=== PATIENT | female | born 1960 | race Caucasian/White ===

== ENCOUNTER → 2018-10-16 10:18 | Outpatient (CLI) | payer MEDICARE, MEDICAID | END | disposition home or self-care (01) | LOC: D.MRI 10:18 | PROVIDERS: ATTEND Orthopaedic Surgery | DX: M54.12 Radiculopathy, cervical region (principal) ==

== ENCOUNTER 2018-12-02 08:00 | Outpatient (CLI) | payer MEDICARE, MEDICAID ==
[2018-12-02] MEDS ORDERED: ZANAFLEX4 MG PO (12:57)
[2018-12-02] MEDS ORDERED: LIPITOR10 MG PO (12:58)
[2018-12-02] MEDS ORDERED: FENOFIBRATE160 MG PO (12:58)
[2018-12-02] MEDS ORDERED: NEURONTIN600 MG PO (12:58)
[2018-12-02] MEDS ORDERED: TOPROL XL25 MG PO (12:58)
[2018-12-02] MEDS ORDERED: CLONAZEPAM TAB 1MG PO (12:59)
[2018-12-02] MEDS ORDERED: HYDROCODON-ACE1 EAC7 PO (12:59)
[2018-12-02] MEDS ORDERED: IBUPROFEN800 MG PO (13:00)
[2018-12-02 14:23] LABS: HEMATOCRIT 41.6 % (36.0-48.0); HEMOGLOBIN 14.8 g/dL (12-16); MCH 35.2 pg (26.0-34.0); MCHC 35.6 g/dL (31.0-37.0); MEAN PLATELET VOLUME 10.1 fL (7.4-10.4); RBC 4.2 10x6/uL (4.00-5.40); RDW 12.2 % (11.5-14.5); WBC 8.5 10x3/uL (4.8-10.8)
[2018-12-23] MEDS ORDERED: BAYER CHEWABLE81 MG PO (16:18)
== END 2018-12-02 08:01 | disposition home or self-care (01) ==
LOC: D.OPS 08:00 → D.PAN 12-04 07:30 → EDSTATUS 12-04 07:30
PROVIDERS: Anesthesiology; ATTEND Neurological Surgery
DX: M54.12 Radiculopathy, cervical region (principal)

== ENCOUNTER 2018-12-24 07:51 | Day surgery (SDC) | payer MEDICARE ==
[2018-12-24] VITALS (16 sets, daily range): BP systolic 90–133; BP diastolic 55–93; Ht 177.8 cm; Wt 105.1 kg
[~2018-12-24] VITALS: Ht 177.8 cm; Wt 105.1 kg
[~2018-12-24 07:51] MED LIST: BAYER CHEWABLE81 MG PO; CLONAZEPAM TAB 1MG PO; FENOFIBRATE160 MG PO; HYDROCODON-ACE1 EAC7 PO; IBUPROFEN800 MG PO; LIPITOR10 MG PO; NEURONTIN600 MG PO; TOPROL XL25 MG PO; ZANAFLEX4 MG PO
[2018-12-24 13:05] LABS: HEMATOCRIT 39.6 % (36.0-48.0); HEMOGLOBIN 14.6 g/dL (12-16); MCH 35.5 pg (26.0-34.0); MCHC 36.9 g/dL (31.0-37.0); MCV 96.4 fL (80.0-100.0); MEAN PLATELET VOLUME 9.4 fL (7.4-10.4); RBC 4.11 10x6/uL (4.00-5.40); RDW 12.3 % (11.5-14.5); WBC 6.5 10x3/uL (4.8-10.8)
--- NOTE | 2018-12-24 14:08 | NUR ---
1227 PT ADMITTED TO THE ICU FROM VIA BED , PT IS AWAKE AND APPROPRIATE IN RESPONSESS... THERE IS A DRESSING ON THE RIGHT ANTERIOR NECK CDI NEURO CHECKS ARE EQUAL WITH A SLIGHT TONGUE SHIFT TO THE LEFT PT STATES THAT HER MOUTH IS VERY DRY 1245 ICE CHIPS GIVEN.. SWALLOWS WITHOUT DIFFICULTY... 1300 C/O PAIN AN 8 1315 FAMILY IN TO SEE PT MEDS GIVEN MSO4 D51/2 NS AT 50CC
--- NOTE | 2018-12-24 15:00 | NUR ---
PT RESTING AT THIS TIME, NO NEEDS NOTED, WILL CON'T TO MONITOR
--- NOTE | 2018-12-24 17:00 | NUR ---
PT C/O OF PAIN, ORDERED PAIN MED GIVEN
--- NOTE | 2018-12-24 19:00 | NUR ---
SHIFT ASSESSMENT COMPLETE. 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 SHE DENIES ANY PAIN AT THIS TIME. RR EVEN AND UNLABORED, CLEAR BREATH SOUNDS HEARD BILAT THROUGHOUT UPPER AND MIDDLE LOBES, DIMINISHED AT THE BASES. NC ON @ 1L/MIN. S1S2 AUDIBLE, HR NSR SHOWING ON MONITOR. R HAND PIV INFUSING D5 1/2 NS @ 50 ML/HR. SOFT C-COLLAR ON, REMOVED, R NECK INCISION CDI, WELL APPROXIMATED. ABD SOFT, BS HYPOACTIVE X4. RADIAL AND PEDAL PULSES PALP. VSS. CALL LIGHT IN REACH, PT IS IN GOOD SPIRITS. BED IN LOWEST POSITION, BED ALARM ON, TIGHT ALARMS SET ON ICU MONITORS. WILL CONT WITH POC.
--- NOTE | 2018-12-24 21:00 | NUR ---
ASSISTED PT TO BSC, 150 ML VOID, YELLOW URINE. GAIT STEADY. REPOSITIONED FOR COMFORT. VSS. CALL LIGHT IN REACH, NO FURTHER NEEDS AT THIS TIME. SOFT C-COLLAR ON AND FUNCTIONING.
--- NOTE | 2018-12-24 23:00 | NUR ---
REASSESSMENT COMPLETE. PT STATES THAT SHE IS IN 8/10 PAIN, INCISIONAL, NECK AND LUIS PAIN. PRN PAIN MEDS ADMIN PER ORDERS. PRN ZOFRAN ADMIN D/T NAUSEA. REPOSITIONED FOR COMFORT, CALL LIGHT IN REACH, NO FURTHER NEEDS AT THIS TIME. WILL CONT CLOSE MONITORING.
--- NOTE | 2018-12-24 23:02 | NUR ---
REVIEWED ALLERGIES WITH PATIENT D/T HYDROCODONE HAVING ACETAMINOPHEN IN IT. SHE STATED, "SOMETIMES IT GIVES ME GASTRIC REFLUX." I ASKED HER IF SHE USUALLY TAKES IT ON AN EMPTY STOMACH AND SHE STATED THAT SHE DID. EDUCATION PROVIDED AND SHE STATES THAT SHE WILL TAKE IT WITH FOOD NEXT TIME. SHE STATED THAT SHE WANTED TO TAKE THE HYDROCODNE NOW AND THAT SHE HAS TAKEN IT IN THE PAST. WILL INFORM AM NURSE TO DISCUSS WITH DR. CUENCA WHEN HE ROUNDS. PROVIDED PM SNACK. NO FURTHER FINDINGS AT THIS TIME. WILL CONT WITH POC.
--- NOTE | 2018-12-24 23:40 | NUR ---
PRN MORPHINE ADMIN D/T INCREASED PAIN OF 10/10. REPOSITIONED FOR COMFORT. PROVIDED EMOTIONAL/SUPPORTIVE CARE. WILL CONT TO MONITOR PAIN ASSESSMENT CLOSELY.
[2018-12-25] VITALS (13 sets, daily range): BP systolic 89–125; BP diastolic 55–80
--- NOTE | 2018-12-25 01:00 | NUR ---
PT STATES THAT HER PAIN IS MANAGED AND SHE IS IN GOOD SPIRITS. ASSISTED TO BSC, GAIT STEADY, LARGE VOID, 250 ML CONCENTRATED URINE. ASSISTED PT BACK TO BED, C-COLLAR IN PLACE. CALL LIGHT IN REACH, WILL CONT WITH POC.
--- NOTE | 2018-12-25 03:00 | NUR ---
REASSESSMENT COMPLETE. PT IS IN GOOD SPIRITS AND SITTING UP IN BED. SHE STATES THAT HER PAIN IS MANAGED AT A 2/10 AND DENIES THE NEED FOR PAIN MEDICINE. REFRESHMENTS BROUGHT TO BEDSIDE. NO FURTHER FINDINGS AT THIS TIME. VSS. CALL LIGHT IN REACH, WILL CONT WITH POC.
--- NOTE | 2018-12-25 04:24 | NUR ---
SISTER IS AT BEDSIDE FOR AM VISITATION. NO NEEDS AT THIS TIME. WILL CONT TO MONITOR. CALL LIGHT IN REACH.
--- NOTE | 2018-12-25 05:00 | NUR ---
CHG BATH AND COMPLETE LINEN CHANGE PROVIDED. PT TOLERATED WELL. ASSISTED PT TO BSC, GAIT STEADY, SOFT C-COLLAR IN USE. LARGE CONCENTRATED VOID. PT BACK IN BED RESTING PEACEFULLY. VSS. SISTER AT BEDSIDE, CALL LIGHT IN REACH, WILL CONT WITH POC.
--- NOTE | 2018-12-25 05:54 | NUR ---
ALLERGIES REVIEWED AGAIN AND PT STATED THAT SHE HASN'T HAD ANY REACTION TO THE HYDROCODONE AND WOULD LIKE FOR ACETAMINOPHEN TO BE REMOVED FROM ALLERGY LIST. WILL COMPLY WITH PT REQUEST.
--- NOTE | 2018-12-25 07:15 | NUR ---
REPORT RECEIVED. PT LAYING IN BED WITH CERVICAL COLLAR IN PLACE. IV TO RIGHT HAND WITH D5 1/2NS INFUSING AT 50ML/HR. SHE IS ALERT AND ORIENTED. SHE IS ON O2 AT 2L. SHE HAS NO COMPLAINTS OR NEEDS. HER DIET HAS BEEN ADVANCED TO REGULAR FOR BREAKFAST. VSS. WILL CONTINUE TO MONITOR.
--- NOTE | 2018-12-25 09:40 | NUR ---
PAIN MEDICATION GIVEN FOR LEVEL 8 OUT OF 10. NO OTHER NEEDS AT THIS TIME.
--- NOTE | 2018-12-25 11:30 | NUR ---
TOOK O2 OFF OF PT. ON ROOM AIR, O2 SAT IS 95%. WILL CONTINUE TO MONITOR. CALL IN TO DR CUENCA FOR D/C ORDERS.
--- NOTE | 2018-12-25 13:20 | NUR ---
D/C PAPERWORK REVIEWED. PRESCRIPTION FOR HYDROCODONE GIVEN TO PT. IV REMOVED FROM HAND. RIDE ON WAY TO MARKETING OUTREACH COORDINATOR PT. NO OTHER NEEDS AT THIS TIME.
--- NOTE | 2019-01-15 09:47 | OP ---
PATIENT NAME: HOLLY BASILIO MEDICAL RECORD: [id number] :64 LOCATION:[facility] ADMISSION DATE: SURGEON: PILAR SULLIVAN MD DATE OF OPERATION: 12/24/2018 PREOPERATIVE DIAGNOSES: Disc herniation and osteophyte formation at C5-C6. POSTOPERATIVE DIAGNOSES: Disc herniation and osteophyte formation at C5-C6. PROCEDURE: Anterior cervical discectomy and fusion at C5-C6 with Zavation anterior cervical plate and screws, PEEK interbody cage, separate bone stem cells with Dinorah bone allograft, removal of osteophytes at C5-C6. SURGEON: Pilar Sullivan MD DESCRIPTION OF TECHNIQUE: After induction of general endotracheal anesthesia, the patient was positioned supine on the operating table. Neck was prepped and draped in the usual sterile fashion. Fluoroscopic x-ray and Morven dissector localized the C5-C6 interspace. After infiltration of 1:100,000 epinephrine and 1% lidocaine, a transverse skin incision was carried out from the midline to the sternocleidomastoid muscle. The platysma was divided with Bovie cautery. Using blunt and sharp dissection with Metzenbaum scissors, I proceeded in an avascular plane. The C5-C6 interspace was identified with fluoroscopic x-ray and a spinal needle. The longus colli muscles were elevated from bodies of C5 and C6. Osteophytes removed anteriorly with Adson rongeurs. A self-retaining retractor was placed deep to the longus colli muscles. Hedley distracting pins were placed in the bodies of C5 and C6. The disc space was incised under distraction with #11 blade. A combination of pituitary rongeurs and curettes was used to clear the disc space and disc material. The endplates were prepared with curettes. Under microscopic illumination, the osteophytes drilled away posteriorly with a Midas-Mumtaz drill and a microscope. The posterior longitudinal ligament was removed with Cloward rongeurs. Following this, the dura was decompressed well. A PEEK interbody cage was placed in the disc space under distraction. Prior to this, the cage was filled with Dinorah bone allograft with bone stem cells. A separate anterior cervical plate and screw from [employer] was used to span the C5-C6 interspace. The 16-mm screws were placed through the holes in the plate. Locking cams were tightened down over the screw heads. Good position of the hardware was confirmed with fluoroscopic x-ray and meticulous hemostasis was maintained throughout the wound. The platysma and subdermal layer closed with interrupted 4-0 Vicryl suture. The skin was reapproximated with Steri-Strips and benzoin. A sterile dressing was applied to the wound. The patient was awakened in good condition and taken to recovery. All counts reported as correct. Estimated blood loss was minimal. TRANSINT:[id number] Voice Confirmation ID: [id number] DOCUMENT ID: [id number] PILAR SULLIVAN MD at 0947 CC: [id number] DICTATION DATE: 12/31/18 0637 TELEGRAPHIC TYPEWRITER MECHANIC: 12/31/18 0657 [facility] 12/25/[address] [address]
== END 2018-12-25 14:00 | disposition home or self-care (01) ==
LOC: D.ICU 07:51 → D.OPS 07:51 → D.PAN 10:00 → D.ICU 12:08 → D.PAN 13:30 → D.OPS 13:30 → D.ICU 15:06 → D.OPS 12-25 14:00
PROVIDERS: Anesthesiology; ATTEND Neurological Surgery
DX: M50.122 Cervical disc disorder at C5-C6 level with radiculopathy (principal); M25.78 Osteophyte, vertebrae